=== PATIENT | female | born 1955 | race Caucasian/White ===

== ENCOUNTER 2020-10-20 09:22 | Inpatient (IN) | payer MEDICARE, OTHER ==
[2020-10-20 09:25] LABS: Glucose,Whole Blood 101 mg/dL (75-99)
[2020-10-20] MEDS ORDERED: SODIUM CHLORIDE 0.9% 1,000 ML IV STA (09:28)
--- NOTE | 2020-10-20 09:34 | ED ---
General Adult HPI - General Stated complaint: altered mental status Time Seen by Provider: 10/20/20 09:28 - History of Present Illness Initial comments: Dictation was produced using [employer] dictation software. please excuse any grammatical, word or spelling errors. This patient was cared for during a federal and state declared state of emergency secondary to Covid 19 Chief Complaint: 65-year-old female with past medical history of CVA and recent hospitalization at [facility] presents to the emergency department for altered mental status. History of Present Illness: 65-year-old female. History of present illness was obtained from EMS. EMS reports that they were called for altered mental status. EMS spoke with family called them states that patient was having one-word responses. She is allegedly like this when she was discharged from [facility] a day and a half ago. While en route to the emergency department EMS reports that at approximately 9:20 AM she became significantly less responsive. Patient is unable to provide HPI at this time. They do have discharge paperwork from [facility] dated from October 19. It appears that patient has follow-up appointments with psychiatry, neurology and vascular neurology and also internal medicine. She did is have medication lists for antiepileptic medications. Unable to obtain secondary to mental status PHYSICAL EXAM: General Impression: Spontaneous breathing, unresponsive to painful stimuli, there is a gag reflex, eyes closed and will only open her eyes with noxious stimuli HEENT: Normocephalic atraumatic, extra-ocular movements intact, pupils equal and reactive to light bilaterally, mucous membranes moist. Cardiovascular: Heart regular rate and rhythm Chest: no retractions, no tachypnea Abdomen: abdomen soft, non-tender, no organomegaly Musculoskeletal: Pulses present and equal in all extremities, no peripheral edema Motor: Doesn't respond to painful stimuli Neurological: No focal commands, eyes closed, does not move with nailbed pressure, she does respond to gag Skin: Intact with no visualized rashes ED course: 65-year-old female presents to the emergency department for altered mental status. Clinical presentation concerning for acute cerebrovascular accident. She allegedly had symptoms already a day and a half ago when she was discharged from [facility] according to EMS who received report from family. She did show significantly change in symptoms at approximately 9:20 AM while en route to the emergency department. Code stroke was paged. Computed tomography scan of the brain is unremarkable. CT angio the head and neck shows no acute processes. There is 50% estimated diameter reduction the right proximal internal carotid artery. Otherwise no significant abnormality. Patient is not a candidate for TPA at this time given that there is no clear time of onset. Her NIH is greater than 6. Some clear this is some sort a psychiatric issue. At this point risk outweigh the benefits for TPA at administration. Patient is not a thrombolytic to be candidate. Case discussed with stroke interventionalists who agrees. EKG interpretation: Ventricular rate 76, normal sinus rhythm,. Interval 1:30, QRS 90, QTc 454. No MD prolongation, no QTC prolongation, no ST or T-wave changes noted. No old EKG for comparison, overall this EKG is nonspecific Lavatory evaluation obtained. CBC unremarkable. Coag panel, metabolic panel is unremarkable. Troponin is negative. Patient reevaluated bedside found to be in stable medical condition. Case is discussed with neurologist who is willing to be on consult. Patient be admitted to [facility]. Case discussed Dr. Begum is willing to accept patients care. Patient given aspirin. - Related Data Home Medications Medication Instructions Recorded Confirmed Aspirin EC [Ecotrin Low Dose] 81 mg PO DAILY 10/20/20 10/20/20 Atorvastatin [Lipitor] 10 mg PO HS 10/20/20 10/20/20 Gabapentin 800 mg PO TID 10/20/20 10/20/20 Liothyronine Sodium 25 mcg PO DAILY 10/20/20 10/20/20 carBAMazepine [TEGretol] 200 mg PO Q8H 10/20/20 10/20/20 lamoTRIgine [LaMICtal] 200 mg PO TID 10/20/20 10/20/20 metFORMIN HCL [Glucophage] 500 mg PO BID 10/20/20 10/20/20 traZODone HCL 50 mg PO HS 10/20/20 10/20/20 Allergies Allergy/AdvReac Type Severity Reaction Status Date / Time Penicillins Allergy Unknown Verified 10/20/20 09:56 Review of Systems ROS Statement: Those systems with pertinent positive or pertinent negative responses have been documented in the HPI. ROS Other: All systems not noted in ROS Statement are negative. Course Vital Signs 10/20/20 10/20/20 10/20/20 09:33 10:05 11:08 Temperature 97.6 F 97.6 F Pulse Rate 70 56 L Respiratory 18 18 18 Rate Blood Pressure 130/85 144/75 124/70 O2 Sat by Pulse 95 96 100 Oximetry Medical Decision Making - Lab Data Result diagrams: 10/20/20 10:00 10/20/20 10:00 Lab Results 10/20/20 10/20/20 10/20/20 Range/Units 09:24 10:00 10:00 WBC 4.8 (3.8-10.6) k/uL RBC 4.84 (3.80-5.40) m/uL Hgb 13.9 (11.4-16.0) gm/dL Hct 41.1 (34.0-46.0) % MCV 84.9 (80.0-100.0) fL MCH 28.7 (25.0-35.0) pg MCHC 33.7 (31.0-37.0) g/dL RDW 12.8 (11.5-15.5) % Plt Count 291 (150-450) k/uL MPV 6.5 Neutrophils % 77 % Lymphocytes % 15 % Monocytes % 6 % Eosinophils % 1 % Basophils % 0 % Neutrophils # 3.7 (1.3-7.7) k/uL Lymphocytes # 0.7 L (1.0-4.8) k/uL Monocytes # 0.3 (0-1.0) k/uL Eosinophils # 0.0 (0-0.7) k/uL Basophils # 0.0 (0-0.2) k/uL PT (9.0-12.0) sec INR (<1.2) APTT (22.0-30.0) sec Sodium 134 L (137-145) mmol/L Potassium 4.1 (3.5-5.1) mmol/L Chloride 96 L (98-107) mmol/L Carbon Dioxide 31 H (22-30) mmol/L Anion Gap 7 mmol/L BUN 10 (7-17) mg/dL Creatinine 0.73 (0.52-1.04) mg/dL Est GFR (CKD-EPI)AfAm >90 (>60 ml/min/1.73 sqM) Est GFR (CKD-EPI)NonAf 87 (>60 ml/min/1.73 sqM) Glucose 107 H (74-99) mg/dL POC Glucose (mg/dL) 101 H (75-99) mg/dL POC Glu Developmental Services Worker Kelsey Landeros Calcium 8.7 (8.4-10.2) mg/dL Total Bilirubin 0.3 (0.2-1.3) mg/dL AST 24 (14-36) U/L ALT 13 (4-34) U/L Alkaline Phosphatase 108 (38-126) U/L Troponin I (0.000-0.034) ng/mL Total Protein 6.8 (6.3-8.2) g/dL Albumin 4.0 (3.5-5.0) g/dL 10/20/20 10/20/20 Range/Units 10:00 10:05 WBC (3.8-10.6) k/uL RBC (3.80-5.40) m/uL Hgb (11.4-16.0) gm/dL Hct (34.0-46.0) % MCV (80.0-100.0) fL MCH (25.0-35.0) pg MCHC (31.0-37.0) g/dL RDW (11.5-15.5) % Plt Count (150-450) k/uL MPV Neutrophils % % Lymphocytes % % Monocytes % % Eosinophils % % Basophils % % Neutrophils # (1.3-7.7) k/uL Lymphocytes # (1.0-4.8) k/uL Monocytes # (0-1.0) k/uL Eosinophils # (0-0.7) k/uL Basophils # (0-0.2) k/uL PT 10.3 (9.0-12.0) sec INR 1.0 (<1.2) APTT 25.8 (22.0-30.0) sec Sodium (137-145) mmol/L Potassium (3.5-5.1) mmol/L Chloride (98-107) mmol/L Carbon Dioxide (22-30) mmol/L Anion Gap mmol/L BUN (7-17) mg/dL Creatinine (0.52-1.04) mg/dL Est GFR (CKD-EPI)AfAm (>60 ml/min/1.73 sqM) Est GFR (CKD-EPI)NonAf (>60 ml/min/1.73 sqM) Glucose (74-99) mg/dL POC Glucose (mg/dL) (75-99) mg/dL POC Glu Developmental Services Worker ID Calcium (8.4-10.2) mg/dL Total Bilirubin (0.2-1.3) mg/dL AST (14-36) U/L ALT (4-34) U/L Alkaline Phosphatase (38-126) U/L Troponin I <0.012 (0.000-0.034) ng/mL Total Protein (6.3-8.2) g/dL Albumin (3.5-5.0) g/dL Disposition Clinical Impression: Altered mental status Disposition: ADMITTED IP TO THIS HOSP Condition: Fair Referrals: None,Stated [Primary Care Provider] - 1-2 days Decision Time: 12:02
--- NOTE | 2020-10-20 09:55 | CT ---
EXAMINATION TYPE: CT brain wo con for TPA DATE OF EXAM: 10/20/2020 COMPARISON: None HISTORY: CODE STROKE CT DLP: Not available at time of entry mGycm Unenhanced CT of the brain was performed. The ventricles, basal cisterns and sulci overlying the cerebral convexities demonstrate mild enlargem ent. There is no evidence for intracranial hemorrhage or sulcal effacement. There is decreased attenuation about the periventricular white matter and deep white matter of both c erebral hemispheres, compatible with chronic small vessel ischemia. Differential diagnosis does inclu de demyelination. No mass effects are seen.No midline shift. Osseous calvarium is intact. If symptoms persist consider MRI. IMPRESSION: 1. Age related atrophic and chronic small vessel ischemic change without acute intracranial process s een at this time.
[2020-10-20 10:16] LABS: Basophils % (A) 0 %; Eosinophils % (A) 1 %; HCT 41.1 % (34.0-46.0); HGB 13.9 gm/dL (11.4-16.0); Lymphocytes # (A) 0.7 k/uL (1.0-4.8); Lymphocytes % (A) 15 %; MCH 28.7 pg (25.0-35.0); MCHC 33.7 g/dL (31.0-37.0); MCV 84.9 fL (80.0-100.0); Mean Platelet Volume 6.5; Monocytes # (A) 0.3 k/uL (0-1.0); Monocytes % (A) 6 %; Neutrophils # (A) 3.7 k/uL (1.3-7.7); Neutrophils % (A) 77 %; Platelet Count 291 k/uL (150-450); RBC 4.84 m/uL (3.80-5.40); RDW 12.8 % (11.5-15.5); WBC 4.8 k/uL (3.8-10.6)
--- NOTE | 2020-10-20 10:23 | XR ---
EXAMINATION TYPE: XR chest 2V DATE OF EXAM: 10/20/2020 COMPARISON: NONE TECHNIQUE: PA and lateral views submitted. HISTORY: Mental status change altered mental status FINDINGS: A coarsened interstitium. Subsegmental changes at both lung bases. No sizable pneumothorax. Heart siz e normal. IMPRESSION: 1. Broad for bronchitis, mild interstitial venous congestion or interstitial pneumonitis. 2. Basilar infiltrate bilaterally
[2020-10-20 10:32] LABS: ALT 13 U/L (4-34); AST 24 U/L (14-36); African American GFR (CKD) >90 (>60 ml/min/1.73 sqM); Alkaline Phosphatase 108 U/L (38-126); Anion Gap 7 mmol/L; Blood Urea Nitrogen 10 mg/dL (7-17); Calcium 8.7 mg/dL (8.4-10.2); Carbon Dioxide 31 mmol/L (22-30); Chloride 96 mmol/L (98-107); Glucose 107 mg/dL (74-99); Non-African American GFR(CKD) 87 (>60 ml/min/1.73 sqM); Potassium 4.1 mmol/L (3.5-5.1); Sodium 134 mmol/L (137-145); Total Bilirubin 0.3 mg/dL (0.2-1.3); Total Protein 6.8 g/dL (6.3-8.2)
[2020-10-20 10:41] LABS: Partial Thromboplastin Time 25.8 sec (22.0-30.0); Prothrombin Time 10.3 sec (9.0-12.0)
--- NOTE | 2020-10-20 10:44 | CT ---
EXAMINATION TYPE: CT angio head neck DATE OF EXAM: 10/20/2020 COMPARISON: None HISTORY: CODE STROKE CT DLP: 437 mGycm CONTRAST: Performed without and with IV Contrast, patient injected with 65 ml mL of Isovue 370. Combination Contrast CTA cervical carotids and [place] CTA cervical carotids with 3-D recons truction Contrast CTA of the cervical carotids was performed 3-D reconstruction imaging obtained at a separate workstation. Right carotid system: Mild plaque is seen of the right common carotid artery. There is mild plaque a lso noted at the carotid bulb and proximal ICA. Estimated diameter reduction is 50%. ECA is patent. Right vertebral artery appears unremarkable. Left carotid system: Mild plaque is seen of the left common carotid artery. There is mild plaque als o noted at the carotid bulb and proximal ICA. No significant diameter reduction noted. ECA is paten t. Left vertebral artery appears unremarkable. IMPRESSION: 1. 50% estimated diameter reduction right proximal ICA. No significant diameter reduction identified left carotid system. CTA [place] with 3-D reconstruction Contrast CTA of the [place] was performed 3-D reconstruction imaging obtained at a separate workstation. Vertebrobasilar system as well as intracranial portions of the internal carotid arteries and their ma win tributaries are patent. I do not see evidence for sizable aneurysm or vascular malformation. Pl ease note MRI provides greater sensitivity and specificity. Visualized brain appears grossly unremar kable. IMPRESSION: 1. No significant abnormality.
[2020-10-20] MEDS ORDERED: ASPIRIN 81 MG PO STA (10:58)
[2020-10-20] MEDS: SODIUM CHLORIDE 0.9% 1,000 ML IV SCH (13:21)
--- NOTE | 2020-10-20 13:30 | P.CNNES ---
History of Present Illness Consult date: 10/20/20 Requesting physician: Wilmer Rowell Reason for Consult: Stroke code History of Present Illness: Patient is a 65-year-old female came to the hospital today by ambulance at 9:22 AM for altered mental status. Patient lives at home although was discharged recently from [facility] 2 days ago for similar presentation. per EMS flow sheet,EMS sheet not available in the chart. Her ED physician report, patient was talking minimally in the beginning but then she stopped talking. Per EMS flow sheet, when they arrived at the scene, patient was in see me Fowlers position accompanied by family, in distress and she does not make contact upon greeting. She was alert 4 on the lethargic. Patient was recently discharged from [facility] after treatment for a fall 2 days prior. Upon her discharge the patient's family noted an awkward speech pattern, mobility issues and general poor appearance, with gradual decline in the patient prompting a call for assistance. Patient was noted to have generalized weakness, with no definitive focal examination and a negative stroke assessment. Patient was oriented 0 while enroute to the hospital. Patient's vital signs on the scene was blood pressure 153/93, pulse rate 68, respirations 16, saturation 90% and blood sugar 124. Vital signs on arrival blood pressure 130/85, pulse rate 70, temperature 97.6. Computed tomography scan of head showed age-related atrophic and chronic small vessel ischemic changes without acute intracranial process. Chest x-ray showed coarse and interstitial. Subsegmental changes at both lung bases. No sizable pneumothorax. Heart size normal. CTA of head and neck showed no significant abnormality. No aneurysm or vascular malformation. EKG shows normal sinus rhythm. T wave abnormality. Blood test shows normal CBC, PT/PTT, sodium 134 potassium 4.1, normal renal functions. Hepatic panel normal. Neal virus positive. Review of Systems ROS unobtainable: due to mental status Past Medical History Past Medical History: Unable to Obtain History of Any Multi-Drug Resistant Organisms: Unobtainable Past Surgical History: Unable to Obtain Past Psychological History: Unable to Obtain Smoking Status: Unknown if ever smoked Past Alcohol Use History: Unable to Obtain Past Drug Use History: Unable to Obtain - Past Family History Father Family Medical History: No Reported History Additional Family Medical History / Comment(s): Father is living and pt states no health problems. Mother History Unknown: Yes Additional Family Medical History / Comment(s): Mother is recently . Pt had not seen her mother in over 10 yrs and does not know any of her medical hx. Medications and Allergies Home Medications Medication Instructions Recorded Confirmed Type Aspirin EC [Ecotrin Low Dose] 81 mg PO DAILY 10/20/20 10/20/20 History Atorvastatin [Lipitor] 10 mg PO HS 10/20/20 10/20/20 History Gabapentin 800 mg PO TID 10/20/20 10/20/20 History Liothyronine Sodium 25 mcg PO DAILY 10/20/20 10/20/20 History carBAMazepine [TEGretol] 200 mg PO Q8H 10/20/20 10/20/20 History lamoTRIgine [LaMICtal] 200 mg PO TID 10/20/20 10/20/20 History metFORMIN HCL [Glucophage] 500 mg PO BID 10/20/20 10/20/20 History traZODone HCL 50 mg PO HS 10/20/20 10/20/20 History Allergies Allergy/AdvReac Type Severity Reaction Status Date / Time Penicillins Allergy Unknown Verified 10/20/20 09:56 Physical Examination - Vital Signs Vital Signs: Vital Signs Temp Pulse Resp BP Pulse Ox 10/20/20 13:00 97.8 F 69 18 125/72 100 10/20/20 12:00 97.7 F 68 18 125/63 100 10/20/20 11:15 97.7 F 80 17 125/77 98 10/20/20 11:08 97.6 F 56 L 18 124/70 100 10/20/20 11:00 97.7 F 71 18 124/70 98 10/20/20 10:45 97.7 F 69 18 136/73 100 10/20/20 10:30 97.6 F 70 18 134/71 99 10/20/20 10:15 97.7 F 73 17 133/68 98 10/20/20 10:05 70 18 144/75 96 10/20/20 10:00 97.7 F 68 18 144/75 98 10/20/20 09:45 97.6 F 69 18 145/78 99 10/20/20 09:33 97.6 F 18 130/85 95 10/20/20 09:30 97.6 F 70 18 130/85 100 Intake and Output 10/19/20 10/20/20 10/20/20 22:59 06:59 14:59 Other: Weight 91.626 kg On examination patient is an elderly female, who is not responding to calling her name or to painful stimuli. She does not open her eyes. However she does follow some commands as below. Her pupils are round and reacting to light. Oculocephalics are somewhat inhibited. It appears patient would minimally open her eyelids to peek. Face is symmetric. She is edentulous. Patient would not protrude her tongue, or open her mouth. Hearing could not be tested. Facial sensations could not be tested. On muscle strength testing patient did squeeze hands bilaterally about 4-, would not flex her elbows, although when I manually lifted her arm, she would hold her arms up for some time. Tone is equal bilaterally. Patient would not begin her feet or toes or legs. Patient would not respond to painful stimuli. Reflexes are 1+ at the biceps, trace at brachioradialis, 2 at the knees 0 ankles and plantars are flat bilaterally. No obvious seizure activity noted. No obvious focality. No peripheral edema, abdomen is soft, nontender. Chest is clear. Results - Laboratory Findings CBC and BMP: 10/21/20 04:18 10/21/20 04:18 Abnormal Lab Findings: Abnormal Labs 10/20/20 10/20/20 10/20/20 09:24 10:00 10:00 Lymphocytes # 0.7 L Sodium 134 L Chloride 96 L Carbon Dioxide 31 H Glucose 107 H POC Glucose (mg/dL) 101 H Coronavirus (PCR) 10/20/20 12:00 Lymphocytes # Sodium Chloride Carbon Dioxide Glucose POC Glucose (mg/dL) Coronavirus (PCR) Detected A Assessment and Plan Assessment: * Altered mental status, possible metabolic encephalopathy, rule out functional disorder. * Covid 19 positive status. Plan: * Patient had a normal computed tomography scan of head, CTA of head and neck. * Her limited examination is nonfocal. * We will check EEG to evaluate for any interictal epileptiform activity. * We will check Tegretol, Lamictal and Neurontin levels, also B12, folate, TSH, RPR, B6, B1. * We will discuss with the family to get collateral history. * Neurology will follow.
[2020-10-20] MEDS ORDERED: NALOXONE 0.4 MG/ML 1 ML VIAL IV PRN (14:14)
[2020-10-20] MEDS ORDERED: ACETAMINOPHEN TAB 325 MG TAB PO PRN (14:14)
[2020-10-20] MEDS ORDERED: MELATONIN 3 MG TABLET PO PRN (14:14)
[2020-10-20] MEDS ORDERED: ALBUTEROL HFA INHALER INHALATION PRN (14:45)
--- NOTE | 2020-10-20 15:25 | P.HPIM ---
<Jai Lai - Last Filed: 10/20/20 14:28> History of Present Illness H&P Date: 10/20/20 Chief Complaint: Alteratin in Mental Status History of presenting illness: Patient is a 65-year-old female with a past medical history including epilepsy and mental delay, CVA/TIA, hyperlipidemia, and diabetes mellitus type 2. Patient presented to [facility] emergency department via EMS for reports of alteration in mental status. Patient recently discharged from [facility] on 10/19/20 where she presented initially for alteration in mental status and had full workup completed prior to discharge on October 19 and instructed to follow-up with psychiatry, neurology, internal medicine, and vascular neurology. Patient was seen and fully evaluated in the emergency department. CT brain without contrast was reported to reveal age-related atrophic and chronic small vessel ischemic changes without any acute intracranial process seen at this time . Chest x-ray reported to be brought for bronchitis with mild interstitial venous congestion and interstitial pneumonitis and basilar infiltrates bilaterally. CTA head and showing 50% estimated diameter reduction to patient's right proximal internal carotid artery with no significant diameter reduction identified in the left carotid system. Otherwise negative for acute intracranial process negative for significant abnormality. EKG normal sinus rhythm at 76 bpm with T-wave inversion in inferior leads II, III, and aVF with no ST abnormalities. No previous EKG available for comparison. Labs: Troponin normal findings < 0.012. CBC unremarkable. Coags unremarkable. BMP revealing mild hyponatremia with sodium of 134 and hypochloremia with chloride 96, otherwise no acute abnormalities. Liver profile unremarkable. Covid 19 virus PCR was POSITIVE. Patient admitted under our services with consult to neurology, psychiatry, and pulmonology. Upon evaluation at bedside, patient was found to have expressive aphasia. She was able to get out limited words and spoke and one syllable responses with pauses between each syllable to pronounce words. She appeared generally weak but was able to lift both arms without difficulties, squeeze providers hands with what appeared to be equal strength, and was able to lift both legs off of the mattress but only high enough for heel to just come off the bed and was not able to hold on for more than 3 seconds. Pupils were equal, round, and reactive to light. Patient unable to follow light with her eyes or finger with her eyes, she was following limited commands. Unable to complete full ROS secondary to patient's alteration in mental status. I called and spoke with her family member, Richard Rey (patient's brother and next of kin). Richard reported that his sister whom he calls "Carisa" typically is alert and oriented to person, place, time, and situation. She lives independently at an assisted living facility called [facility] and ambulate independently without use of any devices. He reports a few days back she was complaining of significant weakness stating she had no energy and was unable to lift her legs, she reportedly had a fall and managed to crawl towards a wall and began banging on it until she received some assistance. He states she was taken to [facility] and was admitted and underwent evaluation in which he reports they diagnosed her with a TIA and discharged her home on 10/19/20. He reports that when he picked her up from the hospital she was still very weak and unable to ambulate so instead of taking her back to the assisted living facility, he had to bring her to her cousin's house so they could take care of her. He states since the discharge from the hospital, she has continued to be very fatigued and weak, had no appetite and did not eat anything, she complained of nausea, and couldn't even talk, which he felt was a total change from his sister's normal behavior so he knew he had to send her back to the hospital for another evaluation because he felt something was very wrong. Review of systems: Family reports patient positive for weakness, extreme fatigue, loss of appetite, and nausea. Unable to complete full ROS secondary to patient's current alt eration in mental status. Physical exam: General: non toxic, appears at stated age, showing no signs of acute distress at this time, vital signs stable Derm: warm, dry, bruise to left hip Head: atraumatic, normocephalic, symmetric Eyes: pupils equal, round, and reactive to light. Unable to assess EOMs secondary to patient's alteration in mental status and inability to follow all commands at this time. Mouth: dry and pasty Cardiovascular: S1-S2 normal with regular rate and rhythm. No murmur, gallops, or rubs noted. Posterior tibial pulses intact bilaterally. Cap refill less than 2 seconds. Lungs: Respirations even, regular, and unlabored on 2 L O2 via nasal cannula with SpO2 of 97% . Lungs diminished bilaterally, possibly secondary to patient not taking deep breaths as she was only following limited commands. Abdominal: Obese abdomen, soft, nontender to palpation, no guarding, no appreciable organomegaly Ext: No gross muscle atrophy, generalized lower extremity edema nonpitting, no contractures Psych/Neuro: Patient awake, eyes open, positive for expressive aphasia, following only limited commands. Patient not withdrawing to painful stimuli, but will move extremities independently and follow limited commands. Plan of care: Alteration in mental status -Possibly secondary to neuropsych condition vs acute infection with COVID 19 virus infection. -CT brain without contrast was reported to reveal age-related atrophic and chronic small vessel ischemic changes without any acute intracranial process seen at this time. -CTA head and showing 50% estimated diameter reduction to patient's right proximal internal carotid artery with no significant diameter reduction identified in the left carotid system, otherwise negative for acute intracranial process negative for significant abnormality. -EKG normal sinus rhythm at 76 bpm with T-wave inversion in inferior leads II, III, and aVF with no ST abnormalities. No previous EKG available for comparison. Labs: -Labs: Troponin normal findings < 0.012. CBC unremarkable. Coags unremarkable. BMP revealing mild hyponatremia with sodium of 134 and hypochloremia with chloride 96, otherwise no acute abnormalities. Covid 19 PCR positive. -Neuro checks every 4 hours. -Consult neurology. -Consult psychiatry. Covid 19 virus pneumonitis -Covid 19 PCR positive on 10/20/20 -Chest x-ray reported to be brought for bronchitis with mild interstitial venou s congestion and interstitial pneumonitis and basilar infiltrates bilaterally. -Oxygenation as needed to maintain SpO2 equal to or greater than 92%. -Decadron 6 mg daily -Vitamin C, vitamin D, zinc, and melatonin. -Consult pulmonology -Bronchodilator protocol with MDIs as needed for wheezing and/or shortness of breath. -Contact plus droplet precautions. -Orders place for CRP, d-dimer, ferritin, and LDH. Seizure disorder -Continue daily medication management with Tegretol and Lamictal. -Seizure precautions, fall precautions, and aspiration precautions in place. Type II [id number] diabetes mellitus -Hold metformin in place patient on glycemic protocol with NovoLog sliding scale. -Heart healthy carb consistent diet. Hyperlipidemia -Continue daily medication management with atorvastatin 10 mg nightly. The patient is admitted with an anticipated greater than 2 midnight stay for evaluation of alteration in mental status and Covid 19 virus infection with pneumonitis. Surrogate decision-maker: In the event patient is unable to make decisions, shonda dalton's brother Richard Rey may be reached at [phone] CODE STATUS: Full code DVT prophylaxis: Lovenox Discussed with: Patient, RN, and patient's brother Richard Anticipated discharge date: Clinical course to determine Anticipated discharge place: Home A total of 45 minutes was spent on the care of this complex patient more than 50% of the time was spent in counseling and care coordination. Past Medical History Past Medical History: Unable to Obtain History of Any Multi-Drug Resistant Organisms: Unobtainable Past Surgical History: Unable to Obtain Past Psychological History: Unable to Obtain Smoking Status: Unknown if ever smoked Past Alcohol Use History: Unable to Obtain Past Drug Use History: Unable to Obtain Medications and Allergies Home Medications Medication Instructions Recorded Confirmed Type Aspirin EC [Ecotrin Low Dose] 81 mg PO DAILY 10/20/20 10/20/20 History Atorvastatin [Lipitor] 10 mg PO HS 10/20/20 10/20/20 History Gabapentin 800 mg PO TID 10/20/20 10/20/20 History Liothyronine Sodium 25 mcg PO DAILY 10/20/20 10/20/20 History carBAMazepine [TEGretol] 200 mg PO Q8H 10/20/20 10/20/20 History lamoTRIgine [LaMICtal] 200 mg PO TID 10/20/20 10/20/20 History metFORMIN HCL [Glucophage] 500 mg PO BID 10/20/20 10/20/20 History traZODone HCL 50 mg PO HS 10/20/20 10/20/20 History Allergies Allergy/AdvReac Type Severity Reaction Status Date / Time Penicillins Allergy Unknown Verified 10/20/20 09:56 Physical Exam Vitals: Vital Signs Temp Pulse Resp BP Pulse Ox 10/20/20 11:08 97.6 F 56 L 18 124/70 100 10/20/20 10:05 70 18 144/75 96 10/20/20 09:33 97.6 F 18 130/85 95 Intake and Output 10/19/20 10/20/20 10/20/20 22:59 06:59 14:59 Other: Weight 91.626 kg Results CBC & Chem 7: 10/20/20 10:00 10/20/20 10:00 Labs: Abnormal Lab Results - Last 24 Hours (Table) 10/20/20 10/20/20 10/20/20 Range/Units 09:24 10:00 10:00 Lymphocytes # 0.7 L (1.0-4.8) k/uL Sodium 134 L (137-145) mmol/L Chloride 96 L (98-107) mmol/L Carbon Dioxide 31 H (22-30) mmol/L Glucose 107 H (74-99) mg/dL POC Glucose (mg/dL) 101 H (75-99) mg/dL <Nicky Ramesh A - Last Filed: 10/20/20 17:07> Physical Exam Osteopathic Statement: *. No significant issues noted on an osteopathic str uctural exam other than those noted in the History and Physical/Consult. Vitals: Vital Signs Temp Pulse Resp BP Pulse Ox 10/20/20 16:33 98.2 F 70 18 151/96 98 10/20/20 13:00 97.8 F 69 18 125/72 100 10/20/20 12:00 97.7 F 68 18 125/63 100 10/20/20 11:15 97.7 F 80 17 125/77 98 10/20/20 11:08 97.6 F 56 L 18 124/70 100 10/20/20 11:00 97.7 F 71 18 124/70 98 10/20/20 10:45 97.7 F 69 18 136/73 100 10/20/20 10:30 97.6 F 70 18 134/71 99 10/20/20 10:15 97.7 F 73 17 133/68 98 10/20/20 10:05 70 18 144/75 96 10/20/20 10:00 97.7 F 68 18 144/75 98 10/20/20 09:45 97.6 F 69 18 145/78 99 10/20/20 09:33 97.6 F 18 130/85 95 10/20/20 09:30 97.6 F 70 18 130/85 100 Intake and Output 10/20/20 10/20/20 10/20/20 06:59 14:59 22:59 Other: Weight 91.626 kg Results CBC & Chem 7: 10/20/20 10:00 10/20/20 10:00 Labs: Abnormal Lab Results - Last 24 Hours (Table) 10/20/20 10/20/20 10/20/20 Range/Units 09:24 10:00 10:00 Lymphocytes # 0.7 L (1.0-4.8) k/uL Sodium 134 L (137-145) mmol/L Chloride 96 L (98-107) mmol/L Carbon Dioxide 31 H (22-30) mmol/L Glucose 107 H (74-99) mg/dL POC Glucose (mg/dL) 101 H (75-99) mg/dL C-Reactive Protein (<10.0) mg/L Coronavirus (PCR) (Not Detectd) 10/20/20 10/20/20 Range/Units 10:00 12:00 Lymphocytes # (1.0-4.8) k/uL Sodium (137-145) mmol/L Chloride (98-107) mmol/L Carbon Dioxide (22-30) mmol/L Glucose (74-99) mg/dL POC Glucose (mg/dL) (75-99) mg/dL C-Reactive Protein 13.0 H (<10.0) mg/L Coronavirus (PCR) Detected A (Not Detectd) Assessment and Plan Assessment: Patient seen and examined independently. Patient was also seen by Jai Lai NP and case was discussed. I am in agreement with subjective, physical exam, assessment and plan as written above and amended below. Initially patient had fluid speech without dysarthria and was complaining of being weak. Once I told her that she had COVID she became tearful and immediately had some dysarthria and slowed speaking. She then reported that she felt guilty for giving her family COVID, she became inappropriately upset and tearful. She made passive statement as to hoping that she would from the COVID rather than live with the guilt that she had exposed her family. She continued to state that this was not okay and that she felt exceedingly guilty. General: [non toxic], [no distress], [appears at stated age] Derm: [warm], [dry] Head: [atraumatic], [normocephalic], [symmetric] Eyes: [EOMI], [no lid lag], [anicteric sclera] Mouth: [no lip lesion], [mucus membranes moist] Cardiovascular: [S1S2 reg], [no murmur], [positive posterior tibial pulse bilateral], Lungs: [Decreased breath sounds bilateral], [no rhonchi, no rales] , [no accessory muscle use] Abdominal: [soft], [ nontender to palpation], [no guarding], [no appreciable organomegaly] Ext: [no gross muscle atrophy], [no edema], [no contractures] Neuro: Initially she was moving all 4 extremities independently with fluid speech. When she became upset she started having difficulty raising her arms and refused to move her legs for many Psych: [Alert], [oriented], tearful, upset, crying, inconsolable Patient does have Covid 19 infection -Does not appear to be acutely hypoxic as she is satting 99-100% on 2 L nasal cannula. At this point in time would avoid steroids if she is not hypoxic and this could exacerbate psychiatric symptoms. -Patient has thyroid supplementation will check TSH.
[2020-10-20] MEDS: CHOLECALCIFEROL 25 MCG (1000 IU) TABLET PO SCH (16:36)
[2020-10-20] MEDS: carBAMazepine 200 MG TAB PO SCH (16:36)
[2020-10-20] MEDS: ENOXAPARIN 40 MG/0.4 ML SYRINGE SQ SCH (16:36)
[2020-10-20] MEDS: lamoTRIgine 100 MG TAB PO SCH (16:36)
[2020-10-20] MEDS: ZINC SULFATE 220 MG CAP PO SCH (16:36)
[2020-10-20] MEDS: ASCORBIC ACID 500 MG TAB PO SCH (16:36)
[2020-10-20 17:14] LABS: Glucose,Whole Blood 98 mg/dL (75-99)
[2020-10-20] MEDS: INSULIN ASPART (NovoLOG) 100 UNIT/ML VIAL SQ SCH (17:14)
--- NOTE | 2020-10-20 17:19 | EEG ---
ELECTROENCEPHALOGRAM REPORT DATE OF SERVICE: 10/20/2020 PREAMBLE: This is a 65-year-old female with altered mental status. EEG FINDINGS: This is a 21-channel routine EEG recording in a patient utilizing 10/20 international system with referential and bipolar montages. Background consists of well-developed, moderately well-regulated, mixed frequencies of 8-9 hertz alpha with some 6-7 hertz theta activity. Background does not seem to be clearly reactive to eye opening or closing. Photic driving response was not seen. No focal or generalized epileptiform activity was seen. EKG channel showed no obvious arrhythmia. Different stages of sleep were not seen. IMPRESSION: This is a mildly abnormal EEG due to mildly disorganized background with minimal slowing. This is suggestive of mild generalized cerebral dysfunction, related to encephalopathy or medication effect. No epileptiform activity was seen. MMODL / CHERELLEN: [id number] /
[2020-10-21] MEDS: ATORVASTATIN 10 MG TAB PO SCH ×2 (03:17→20:53)
[2020-10-21] MEDS: lamoTRIgine 100 MG TAB PO SCH ×4 (03:17→20:53)
[2020-10-21] MEDS: SODIUM CHLORIDE 0.9% 1,000 ML IV SCH ×3 (03:17→20:53)
[2020-10-21] MEDS: carBAMazepine 200 MG TAB PO SCH ×4 (03:17→22:18)
[2020-10-21 04:44] LABS: Basophils % (A) 0 %; Eosinophils # (A) 0.1 k/uL (0-0.7); Eosinophils % (A) 1 %; HCT 40.6 % (34.0-46.0); HGB 13.8 gm/dL (11.4-16.0); Lymphocytes % (A) 23 %; MCH 28.8 pg (25.0-35.0); MCV 84.7 fL (80.0-100.0); Mean Platelet Volume 6.7; Monocytes # (A) 0.3 k/uL (0-1.0); Monocytes % (A) 7 %; Neutrophils # (A) 2.9 k/uL (1.3-7.7); Neutrophils % (A) 67 %; Platelet Count 297 k/uL (150-450); RBC 4.79 m/uL (3.80-5.40); RDW 12.8 % (11.5-15.5); WBC 4.4 k/uL (3.8-10.6)
[2020-10-21 05:19] LABS: African American GFR (CKD) >90 (>60 ml/min/1.73 sqM); Anion Gap 8 mmol/L; Blood Urea Nitrogen 10 mg/dL (7-17); Carbon Dioxide 27 mmol/L (22-30); Chloride 101 mmol/L (98-107); Cholesterol 169 mg/dL (<200); Glucose 82 mg/dL (74-99); HDL Cholesterol 75 mg/dL (40-60); LDL Cholesterol,Calculated 74 mg/dL (0-99); Non-African American GFR(CKD) >90 (>60 ml/min/1.73 sqM); Potassium 3.9 mmol/L (3.5-5.1); Sodium 136 mmol/L (137-145); Triglycerides 100 mg/dL (<150)
[2020-10-21 06:40] LABS: Ferritin 63.6 ng/mL (10.0-291.0)
[2020-10-21] MEDS ORDERED: ASPIRIN 325 MG TAB PO SCH (09:00)
[2020-10-21] MEDS ORDERED: dexAMETHasone 2 MG TAB PO SCH (09:00)
[2020-10-21] MEDS: CHOLECALCIFEROL 25 MCG (1000 IU) TABLET PO SCH ×2 (10:08→10:10)
[2020-10-21] MEDS: ZINC SULFATE 220 MG CAP PO SCH (10:08)
[2020-10-21] MEDS: ASCORBIC ACID 500 MG TAB PO SCH (10:08)
[2020-10-21] MEDS: ENOXAPARIN 40 MG/0.4 ML SYRINGE SQ SCH (10:08)
[2020-10-21] MEDS: ASPIRIN 81 MG PO SCH (10:09)
[2020-10-21] MEDS: INSULIN ASPART (NovoLOG) 100 UNIT/ML VIAL SQ SCH ×3 (10:15→17:50)
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
[2020-10-21 12:12] LABS: Glucose,Whole Blood 105 mg/dL (75-99)
--- NOTE | 2020-10-21 12:43 | P.PN ---
<Jai Lai - Last Filed: 10/21/20 12:05> Subjective Progress Note Date: 10/21/20 History of presenting illness: Patient is a 65-year-old female with a past medical history including epilepsy and mental delay, CVA/TIA, hyperlipidemia, and diabetes mellitus type 2. Patient presented to [facility] emergency department via EMS for reports of alteration in mental status. Patient recently discharged from [facility] on 10/19/20 where she presented initially for alteration in mental status and had full workup completed prior to discharge on October 19 and instructed to follow-up with psychiatry, neurology, internal medicine, and vascular neurology. Patient was seen and fully evaluated in the emergency department. CT brain without contrast was reported to reveal age-related atrophic and chronic small vessel ischemic changes without any acute intracranial process seen at this time. Chest x-ray reported to be brought for bronchitis with mild interstitial venous congestion and interstitial pneumonitis and basilar infiltrates bilaterally. CTA head and showing 50% estimated diameter reduction to patient's right proximal internal carotid artery with no significant diameter reduction identified in the left carotid system. Otherwise negative for acute intracranial process negative for significant abnormality. EKG normal sinus rhythm at 76 bpm with T-wave inversion in inferior leads II, III, and aVF with no ST abnormalities. No previous EKG available for comparison. Labs: Troponin normal findings < 0.012. CBC unremarkable. Coags unremarkable. BMP revealing mild hyponatremia with sodium of 134 and hypochloremia with chloride 96, otherwise no acute abnormalities. Liver profile unremarkable. Covid 19 virus PCR was POSITIVE. Patient admitted under our services for acute alteration in mental status and Covid 19 pneumonitis with consult to neurology, psychiatry, and pulmonology. Physical exam: 10/21/20: Patient seen and evaluated at the bedside this morning. She was awake, alert, and oriented 4. Speech was clear. All previously noted neuro/psychiatric symptoms have spontaneously resolved. Pt is moving all extremities with moderate and equal strength. Sensation intact. Patient denied having any complaints at this time including recent fever, chills, diaphoresis, headache, lightheadedness, dizziness, changes in vision or hearing, chest pain or palpitations, abdominal pain, nausea, vomiting, changes in her difficulties with urinary or bowel function, or currently experiencing any numbness/weakness/tingling in extremities. Patient reports that she fully remembers yesterday and states that she was very concerned because she could not feel her legs and could not move her left leg and had a very difficult time trying to talk. Patient's main concern this morning was that she was very hungry. A diet order was placed. Vital signs reviewed and stable. CBC and BMP unremarkable. TSH was elevated at 9.430, Liothyronine sodium increased to 75 g daily. General: non toxic, appears at stated age, showing no signs of acute distress at this time, vital signs stable Derm: warm, dry, bruise to left hip Head: atraumatic, normocephalic, symmetric Eyes: Pupils equal, round, and reactive to light. EOMs intact. No scleral icterus noted. Mouth: No lip or tongue lesions noted, mucous membranes moist. Upper and lower dentures. Cardiovascular: S1-S2 normal with regular rate and rhythm. No murmur, gallops, or rubs noted. Posterior tibial pulses intact bilaterally. Cap refill less than 2 seconds. Lungs: Respirations even, regular, and unlabored on room air with SpO2 97%. Lungs diminished bilaterally, possibly secondary to patient not taking deep breaths as she was only following limited commands. Abdominal: Obese abdomen, soft, nontender to palpation, no guarding, no appreciable organomegaly Ext: No gross muscle atrophy, generalized lower extremity edema nonpitting, no contractures. Full range of motion intact. Strength moderate and equal in bilateral upper and lower extremities. Neuro: Patient awake, alert, and oriented this morning. Speech clear. GCS 15. Cranial nerves II through XII intact. No noted neuro deficits. Psych: Patient currently alert and oriented, denies visual, auditory, or tactile hallucinations. Denies suicidal or homicidal ideations. Plan of care: Covid 19 virus pneumonitis -Covid 19 PCR positive on 10/20/20 -Chest x-ray reported to be brought for bronchitis with mild interstitial venous congestion and interstitial pneumonitis and basilar infiltrates bilaterally. -Oxygenation as needed to maintain SpO2 equal to or greater than 92%. -May consider adding steroid such as Decadron if patient becomes symptomatic or hypoxic, she is currently on room air with SpO2 97%. -Vitamin C, vitamin D, zinc, and melatonin. -Pulmonology following. -Bronchodilator protocol with MDIs as needed for wheezing and/or shortness of breath. -Contact plus droplet precautions. Alteration in mental status, resolved -Previous episode of acute alteration in mental status is highly suspected to be secondary to underlying psychiatric disorder. -CT brain without contrast was reported to reveal age-related atrophic and chronic small vessel ischemic changes without any acute intracranial process seen at this time. -CTA head and showing 50% estimated diameter reduction to patient's right proximal internal carotid artery with no significant diameter reduction identified in the left carotid system, otherwise negative for acute intracranial process negative for significant abnormality. -EKG normal sinus rhythm at 76 bpm with T-wave inversion in inferior leads II, III, and aVF with no ST abnormalities. No previous EKG available for comparison. -Neuro checks every 4 hours. -Neurology following, appreciate further recommendations. -Consult psychiatry, appreciate further recommendations. Hypothyroidism -TSH 9.430 -Daily medication management consists of Liothyronine sodium 25 mcgs daily. Dose increased to 75 g daily at this time. -Patient to follow up outpatient with PCP/endocrinology for repeat labs and continued long-term monitoring and management of thyroid function. Seizure disorder -Continue daily medication management with Tegretol and Lamictal. -Seizure precautions, fall precautions, and aspiration precautions in place. -Carbamazepine level 6.1. Type II [id number] diabetes mellitus -Hold metformin and place patient on glycemic protocol with NovoLog sliding scale. -Heart healthy carb consistent diet. Hyperlipidemia -Continue daily medication management with atorvastatin 10 mg nightly. -Heart healthy carb consistent diet CODE STATUS: Full code DVT prophylaxis: Lovenox Discussed with: Patient and RN Anticipated discharge date: Clinical course to determine Anticipated discharge place: SNF vs inpatient mental health facility A total of 45 minutes was spent on the care of this complex patient more than 50% of the time was spent in counseling and care coordination. Objective - Vital Signs Vital signs: Vital Signs Temp 98.1 F 10/21/20 08:00 Pulse 72 10/21/20 08:00 Resp 16 10/21/20 08:00 BP 116/71 10/21/20 08:00 Pulse Ox 94 L 10/21/20 08:00 Intake & Output 10/20/20 10/21/20 10/21/20 18:59 06:59 18:59 Weight 91.626 kg 91.626 kg - Labs CBC & Chem 7: 10/21/20 04:18 10/21/20 04:18 Labs: Abnormal Lab Results - Last 24 Hours (Table) 10/20/20 10/20/20 10/20/20 Range/Units 10:00 10:00 10:00 Lymphocytes # 0.7 L (1.0-4.8) k/uL Sodium 134 L (137-145) mmol/L Chloride 96 L (98-107) mmol/L Carbon Dioxide 31 H (22-30) mmol/L Glucose 107 H (74-99) mg/dL C-Reactive Protein 13.0 H (<10.0) mg/L HDL Cholesterol (40-60) mg/dL TSH (0.465-4.680) mIU/L Coronavirus (PCR) (Not Detectd) 10/20/20 10/21/20 Range/Units 12:00 04:18 Lymphocytes # (1.0-4.8) k/uL Sodium 136 L (137-145) mmol/L Chloride (98-107) mmol/L Carbon Dioxide (22-30) mmol/L Glucose (74-99) mg/dL C-Reactive Protein (<10.0) mg/L HDL Cholesterol 75 H (40-60) mg/dL TSH 9.430 H (0.465-4.680) mIU/L Coronavirus (PCR) Detected A (Not Detectd) <Nicky Ramesh A - Last Filed: 10/21/20 21:33> Objective - Vital Signs Vital signs: Vital Signs Temp 98.4 F 10/21/20 20:00 Pulse 71 10/21/20 20:59 Resp 16 10/21/20 20:59 BP 144/75 10/21/20 20:00 Pulse Ox 97 10/21/20 20:00 Intake & Output 10/21/20 10/21/20 10/22/20 06:59 18:59 06:59 Intake Total 200 Output Total 1400 900 Balance -1200 -900 Weight 91.626 kg Intake: Oral 200 Output: Urine 1400 900 Other: Voiding Method Toilet Indwelling Catheter - Labs CBC & Chem 7: 10/21/20 04:18 10/21/20 04:18 Labs: Abnormal Lab Results - Last 24 Hours (Table) 10/21/20 10/21/20 Range/Units 04:18 12:11 Sodium 136 L (137-145) mmol/L POC Glucose (mg/dL) 105 H (75-99) mg/dL HDL Cholesterol 75 H (40-60) mg/dL TSH 9.430 H (0.465-4.680) mIU/L Assessment and Plan Assessment: I discussed the care with Jai Lai NP and reviewed the findings and plan as documented in the note above. I did not physically speak with or examine the patient on this date.
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
[2020-10-21] MEDS: LIOTHYRONINE SODIUM 5 MCG TAB PO SCH (16:03)
[2020-10-21 17:20] LABS: Glucose,Whole Blood 82 mg/dL (75-99)
[2020-10-21 20:02] LABS: Glucose,Whole Blood 95 mg/dL (75-99)
--- NOTE | 2020-10-21 23:13 | P.PN ---
Subjective Progress Note Date: 10/21/20 Patient was seen for a follow-up. Patient is fully alert and awake oriented. Speech and language functions are normal. Mentation is completely normal today. Patient states she is feeling much better. Offers no complaints. Patient able to provide more detailed history. She states that she has history of seizure disorder since she was 4 years old. She has history of petit mal and grand mal seizures. The last seizure was 2 months ago. She only gets seizure when she is upset, depressed or working too hard outside in the sun. Patient states that she has been very stable. On 10/16/2020, she was sitting, stood up and fell to the floor. Her left leg was completely froze. She tried crawling t o the bed and was able to get help from the apartment office. [place] [facility] [place] for 2 [place]. 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 Patient believes that she underwent EEG and an MRI in the hospital. Patient states that they did not check for Covid. When she went home, she couldn't walk, needed brother helped, as she couldn't walk by herself. She was not eating, drinking. Whenever she was eating, felt like will throw up. As she became very weak, therefore was brought to the hospital. Patient states that her seizures at present are managed by her primary physician. She is not seeing any neurologist. Objective - Vital Signs Vital signs: Vital Signs Temp 98.4 F 10/21/20 15:00 Pulse 65 10/21/20 15:00 Resp 18 10/21/20 15:00 BP 128/74 10/21/20 15:00 Pulse Ox 95 10/21/20 15:00 Intake & Output 10/20/20 10/21/20 10/21/20 18:59 06:59 18:59 Intake Total 200 Output Total 1000 Balance -800 Weight 91.626 kg 91.626 kg Intake: Oral 200 Output: Urine 1000 Other: Voiding Method Toilet - Exam On examination patient is an elderly female, very pleasant, in no acute distress. She is alert and awake. Patient knows that she is in [facility], and it is October and the year is 2020 and name of the current president. On cranial exertion pupils are round and reacting, visual mccray are full, extraocular muscles are intact, face is symmetric and tongue protrudes at midline. Muscle strength appears normal bilaterally. - Labs CBC & Chem 7: 10/21/20 04:18 10/21/20 04:18 Labs: Abnormal Lab Results - Last 24 Hours (Table) 10/21/20 10/21/20 Range/Units 04:18 12:11 Sodium 136 L (137-145) mmol/L POC Glucose (mg/dL) 105 H (75-99) mg/dL HDL Cholesterol 75 H (40-60) mg/dL TSH 9.430 H (0.465-4.680) mIU/L Assessment and Plan Assessment: * Altered mental status, possible metabolic encephalopathy * Seizure disorder * Covid 19 positive status. Plan: * Patient had a normal computed tomography scan of head, CTA of head and neck. * Patient's mentation is back to normal. Current neurological examination is nonfocal. * EEG was mildly abnormal due to slightly disorganized background with minimal slowing. This is suggestive of mild generalized cerebral dysfunction, related to encephalopathy or medication effect. No epileptiform activity was seen. * Tegretol 6.1, therapeutic. Await Lamictal and Neurontin levels. TSH is elevated 9.43. IM to address hypothyroidism. Await B12, folate, RPR, B6, B1. * Continue same dose of Lamictal 200 mg 3 times a day and Tegretol 200 mg every 8 hours. * May resume Neurontin at a lower dose 300 mg 3 times a day. (Patient was on Neurontin 800 mg 3 times a day). * We will obtain [place] [facility]
[2020-10-22] MEDS: SODIUM CHLORIDE 0.9% 1,000 ML IV SCH ×3 (02:29→20:28)
[2020-10-22] MEDS ORDERED: LIOTHYRONINE SODIUM 5 MCG TAB PO SCH (06:30)
[2020-10-22] MEDS: LIOTHYRONINE SODIUM 5 MCG TAB PO SCH (07:02)
[2020-10-22] MEDS: carBAMazepine 200 MG TAB PO SCH ×3 (07:02→20:27)
[2020-10-22 07:27] LABS: Glucose,Whole Blood 80 mg/dL (75-99)
[2020-10-22 09:04] LABS: Folate, Serum 12.7 ng/mL
[2020-10-22] MEDS: INSULIN ASPART (NovoLOG) 100 UNIT/ML VIAL SQ SCH ×3 (09:09→17:34)
[2020-10-22] MEDS: GABAPENTIN 300 MG CAP PO SCH ×3 (09:22→20:27)
[2020-10-22] MEDS: ENOXAPARIN 40 MG/0.4 ML SYRINGE SQ SCH (09:22)
[2020-10-22] MEDS: ASPIRIN 81 MG PO SCH (09:22)
[2020-10-22] MEDS: lamoTRIgine 100 MG TAB PO SCH ×3 (09:22→20:27)
[2020-10-22] MEDS: ZINC SULFATE 220 MG CAP PO SCH (09:22)
[2020-10-22] MEDS: ASCORBIC ACID 500 MG TAB PO SCH (09:22)
--- NOTE | 2020-10-22 09:59 | P.PN ---
Subjective Progress Note Date: 10/22/20 Principal diagnosis: Acute, with 19 infection and metabolic encephalopathy, possible TIA. This is a 65-year-old white female, known history of epilepsy, previous CVA/TIA. Type 2 diabetes. Patient was recently at [facility] in [place] with multiple neurological symptoms including change in mental status, and weakness in lower extremities from the waist down. Patient was actually discharged on 10/19/2020, and she was advised to follow-up with psychiatry neurology and internal medicine as well as vascular radiology. Apparently she had extensive neurological workup while at [facility], and all the workup came back nondiagnostic. Patient was brought in this time to [facility] with complaints including couldn't talk./Expressive aphasia, and she was weak from the waist down, couldn't move her lower extremities. She was seen by neurology on consultation, and she had extensive workup again which basically came back all nondiagnostic. According to the patient all the workup that was done at [facility] was repeated again in our institution. While in the ER, patient had a chest x-ray which questioned interstitial infiltrates, and she tested positive for covid 19. Patient did not require any oxygen and I asked her multiple times about if she has any pulmonary symptoms she denied any symptoms whatsoever. She denied cough denied wheezing denies shortness of breath today chest pain denied any dyspnea on exertion. Patient basically had mostly neurological symptoms. And according to her her expressive aphasia reso lved this morning her weakness in the legs also resolved this morning. Patient lives in an assisted living facility. And she normally ambulates independently without any use of any device. CBC in the ER was normal basic metabolic profile was normal, thyroid profile was abnormal with elevated TSH and relatively low T4. Lower limits of normal, indicative of mild hypothyroidism. Patient was reevaluated today on 10/22/2020, patient seems to be doing well, has no active pulmonary symptoms whatsoever. Her neurological symptoms have also resolved, and there was no clear-cut explanation to her neurological symptoms, reviewed the report from the neurologist, again no clear-cut explanation for her symptoms. Seen by psychiatry, and did not feel the patient had conversion disorder. At any rate from our perspective and pulmonary-valera the patient is doing well, she has no active symptoms to suggest active infection at this point. Patient remains on room air, and from our perspective consider discharge planning if cleared by neurology. Labs were reviewed today, and they seem to be relatively unremarkable. Even her inflammatory markers were not impressive on presentation LDH was 360 and C-reactive protein was 13 Objective - Vital Signs Vital signs: Vital Signs Temp 98.3 F 10/22/20 07:10 Pulse 73 10/22/20 07:10 Resp 18 10/22/20 07:10 BP 120/70 10/22/20 07:10 Pulse Ox 97 10/22/20 07:10 Intake & Output 10/21/20 10/22/20 10/22/20 18:59 06:59 18:59 Intake Total 200 240 Output Total 1400 3225 Balance -1200 -3225 240 Weight 91.626 kg Intake: Oral 200 240 Output: Urine 1400 3225 Other: Voiding Method Toilet Indwelling Catheter - Exam Physical Exam: Revealed a 65-year-old female in no distress on room air. Head: Atraumatic, normocephalic. HEENT:[Neck is supple.] [No neck masses.] [No thyromegaly.] [No JVD.] Chest: [Clear throughout, no crackles, no rhonchi, no wheezes.] Cardiac Exam: [Normal S1 and S2, no S3 gallop, no murmur.] Abdomen: [Soft, nontender, no megaly, no rebound, no guarding, normal bowel sounds.] Extremities: [No clubbing, no edema, no cyanosis.] Neurological Exam: [No focal neurologic deficit.] Alert and oriented 3. Psychiatric: Normal mood, affect and normal mental status examination. Skin: No rashes. Musculoskeletal: No deformities and no limitation in range of motion. - Labs CBC & Chem 7: 10/21/20 04:18 10/21/20 04:18 Labs: Abnormal Lab Results - Last 24 Hours (Table) 10/21/20 Range/Units 12:11 POC Glucose (mg/dL) 105 H (75-99) mg/dL Assessment and Plan Assessment: Impression: Acute covid 19 infection without any pulmonary symptoms or findings. And without hypoxia. Possible TIA, workup is being performed by neurology on the case. Possible functional disorder with recurrent neurological symptoms, extensive workup has been done and none of it is diagnostic. Suspect hypothyroidism with elevated TSH and low T4. Patient would benefit from small Synthroid dose. Recommendation: Continue the Covid 19 cocktail. Patient does not qualify for any treatment except the vitamins, would not recommend REM no Decadron is needed, and definitely no toci and no convalescent Continue Lovenox Cleared from our perspective for discharge if cleared by neurology. Time with Patient: Less than 30
[2020-10-22 11:44] LABS: Glucose,Whole Blood 109 mg/dL (75-99)
[2020-10-22 13:09] VITALS: BMI 32.5
--- NOTE | 2020-10-22 13:11 | P.PN ---
Subjective Progress Note Date: 10/22/20 Mentation has been clear to my exam today. Moving LE appropriately with good strength. Neurology eval pending. Objective - Vital Signs Vital signs: Vital Signs Temp 98.3 F 10/22/20 07:10 Pulse 73 10/22/20 07:10 Resp 18 10/22/20 07:10 BP 120/70 10/22/20 07:10 Pulse Ox 97 10/22/20 07:10 Intake & Output 10/21/20 10/22/20 10/22/20 18:59 06:59 18:59 Intake Total 200 240 Output Total 1400 3225 Balance -1200 -3225 240 Weight 91.626 kg Intake: Oral 200 240 Output: Urine 1400 3225 Other: Voiding Method Toilet Indwelling Catheter - Exam Gen: awake, alert HEENT: normocephalic, atraumatic, good hearing acuity, moist mucous membranes Resp: good air exchange, breathing comfortably with no accessory muscle use, clear to auscultation bilaterally without wheezes or crackles CVS: good distal perfusion x 4, regular rate and rhythm without murmurs GI: soft, NTTP, ND : no SPT, no CVAT, gonzalez catheter is present MSK: no pitting edema, no clubbing Neuro: non-focal, moving all extremities Psych: cooperative, euthymic mood - Labs CBC & Chem 7: 10/21/20 04:18 10/21/20 04:18 Labs: Abnormal Lab Results - Last 24 Hours (Table) 10/22/20 Range/Units 11:41 POC Glucose (mg/dL) 109 H (75-99) mg/dL Assessment and Plan Assessment: Alteration in mental status, resolved -Previous episode of acute alteration in mental status is highly suspected to be secondary to underlying psychiatric disorder. -CT brain without contrast was reported to reveal age-related atrophic and ch ronic small vessel ischemic changes without any acute intracranial process seen at this time. -CTA head and showing 50% estimated diameter reduction to patient's right proximal internal carotid artery with no significant diameter reduction identified in the left carotid system, otherwise negative for acute intracranial process negative for significant abnormality. -EKG normal sinus rhythm at 76 bpm with T-wave inversion in inferior leads II, III, and aVF with no ST abnormalities. No previous EKG available for comparison. -Neuro checks every 4 hours. -Neurology following, appreciate further recommendations. -Consult psychiatry, appreciate further recommendations. Covid 19 virus pneumonitis -Covid 19 PCR positive on 10/20/20 -Chest x-ray reported to be brought for bronchitis with mild interstitial venous congestion and interstitial pneumonitis and basilar infiltrates bilaterally. -Oxygenation as needed to maintain SpO2 equal to or greater than 92%. -May consider adding steroid such as Decadron if patient becomes symptomatic or hypoxic, she is currently on room air with SpO2 97%. -Vitamin C, vitamin D, zinc, and melatonin. -Pulmonology following. -Bronchodilator protocol with MDIs as needed for wheezing and/or shortness of breath. -Contact plus droplet precautions. Hypothyroidism -TSH 9.430 -Daily medication management consists of Liothyronine sodium 25 mcgs daily. Dose increased to 75 g daily at this time. -Patient to follow up outpatient with PCP/endocrinology for repeat labs and continued long-term monitoring and management of thyroid function. Seizure disorder -Continue daily medication management with Tegretol and Lamictal. -Seizure precautions, fall precautions, and aspiration precautions in place. -Carbamazepine level 6.1. Type II [id number] diabetes mellitus -Hold metformin and place patient on glycemic protocol with NovoLog sliding scale. -Heart healthy carb consistent diet. Hyperlipidemia -Continue daily medication management with atorvastatin 10 mg nightly. -Heart healthy carb consistent diet CODE STATUS: Full code DVT prophylaxis: Lovenox Discussed with: Patient and RN Anticipated discharge date: Clinical course to determine Anticipated discharge place: SNF vs inpatient mental health facility
[2020-10-22 17:15] LABS: Glucose,Whole Blood 112 mg/dL (75-99)
[2020-10-22] MEDS ORDERED: CYANOCOBALAMIN 1,000 MCG/ML 1 ML VIAL IM ONE (18:00)
--- NOTE | 2020-10-22 18:30 | P.PN ---
Subjective Progress Note Date: 10/22/20 10/22/2020: Patient is feeling much better. Offers no new complaints. [place] [facility] [place] on 10/18/2020 revealed mildly abnormal EEG. Mild diffuse excess of slow frequencies indicating the presence of nonspecific encephalopathic process or medication effect. MRI of the brain without IV contrast on 10/17/2020 revealed no acute infarct. Moderate chronic small vessel ischemic changes. MRI of the cervical spine for 10/17/2020 revealed no evidence of abnormal signal in the cord. Multilevel degenerative change with severe central canal stenosis, worse on the right and severe bilateral neural foraminal stenosis at C5 6. Moderate central canal narrowing at C4 5. 10/21/2020: Patient was seen for a follow-up. Patient is fully alert and awake oriented. Speech and language functions are normal. Mentation is completely normal today. Patient states she is feeling much better. Offers no complaints. Patient able to provide more detailed history. She states that she has history of seizure disorder since she was 4 years old. She has history of petit mal and grand mal seizures. The last seizure was 2 months ago. She only gets seizure when she is upset, depressed or working too hard outside in the sun. Patient states that she has been very stable. On 10/16/2020, she was sitting, stood up and fell to the floor. Her left leg was completely froze. She tried crawling to the bed and was able to get help from the apartment office. She was [place] [facility] [place] hospitalized for 2 days. 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 Patient believes that she underwent EEG and an MRI in the hospital. Patient states that they did not check for Covid. When she went home, she couldn't walk, needed brother helped, as she couldn't walk by herself. She was not eating, drinking. Whenever she was eating, felt like will throw up. As she became very weak, therefore was brought to the hospital. Patient states that her seizures at present are managed by her primary physician. She is not seeing any neurologist. Objective - Vital Signs Vital signs: Vital Signs Temp 97.7 F 10/22/20 13:53 Pulse 74 10/22/20 13:53 Resp 18 10/22/20 15:24 BP 129/83 10/22/20 13:53 Pulse Ox 98 10/22/20 13:53 Intake & Output 10/21/20 10/22/20 10/22/20 18:59 06:59 18:59 Intake Total 200 240 Output Total 1400 3225 Balance -1200 -3225 240 Weight 91.626 kg 91.626 kg Intake: Oral 200 240 Output: Urine 1400 3225 Other: Voiding Method Toilet Indwelling Catheter Indwelling Catheter # Voids 1 # Bowel Movements 1 - Exam On examination patient is an elderly female, very pleasant, in no acute distress. She is alert and awake. Patient knows that she is in [facility], and it is October and the year is 2020 and name of the current president. On cranial nerve examination, pupils are round and reacting, visual mccray are full, extraocular muscles are intact, face is symmetric and tongue protrudes at midline. Muscle strength is normal in the arms and legs distally and proximally. No ataxia for [id number] testing. Tone and bulk of muscles normal. - Labs CBC & Chem 7: 10/21/20 04:18 10/21/20 04:18 Labs: Abnormal Lab Results - Last 24 Hours (Table) 10/22/20 10/22/20 Range/Units 11:41 17:13 POC Glucose (mg/dL) 109 H 112 H (75-99) mg/dL Assessment and Plan Assessment: * Altered mental status, possible metabolic encephalopathy * Seizure disorder * Acute Covid 19 infection. * Vitamin B12 deficiency Plan: * [place] [facility] [place] of the brain without IV contrast was normal. Moderate chronic small vessel ischemic changes. MRI of the cervical spine showed severe central canal stenosis, worse on the right and severe bilateral neural foraminal stenosis at C5 6. Patient probably will need follow-up with spine surgeon as outpatient, regarding cervical spinal stenosis. * CTA of head and neck normal. * Patient's mentation is back to normal. Current neurological examination is nonfocal. * EEG was mildly abnormal due to slightly disorganized background with minimal slowing. This is suggestive of mild generalized cerebral dysfunction, related to encephalopathy or medication effect. No epileptiform activity was seen. * Tegretol 6.1, therapeutic. Lamictal 11.0 (2-15). Neurontin level 2.0 (2.0- 12.0). TSH is elevated 9.43. IM to address hypothyroidism. * B12 209, folate 12.7, RPR nonreactive, B6, B1 62 (40-60). We will start B12 replacement. Patient was recommended to start taking vitamin B12 2500 mg sublingually daily. * Continue same dose of Lamictal 200 mg 3 times a day and Tegretol 200 mg every 8 hours. * May resume Neurontin at a lower dose 300 mg 3 times a day. (Patient was on Neurontin 800 mg 3 times a day). * Recommend patient follow up with neurologist as outpatient for management of seizure disorder, and follow-up on cervical spinal stenosis. * Continue aspirin 81 mg and Lipitor 10 mg. * Neurologically clear for discharge.
[2020-10-22 20:04] LABS: Glucose,Whole Blood 180 mg/dL (75-99)
[2020-10-22] MEDS: ATORVASTATIN 10 MG TAB PO SCH (20:27)
[2020-10-23] MEDS: LIOTHYRONINE SODIUM 5 MCG TAB PO SCH (05:45)
[2020-10-23] MEDS: carBAMazepine 200 MG TAB PO SCH (05:46)
[2020-10-23 07:29] LABS: Glucose,Whole Blood 98 mg/dL (75-99)
[2020-10-23] MEDS: INSULIN ASPART (NovoLOG) 100 UNIT/ML VIAL SQ SCH ×2 (07:58→12:19)
[2020-10-23] MEDS: lamoTRIgine 100 MG TAB PO SCH (08:44)
[2020-10-23] MEDS: GABAPENTIN 300 MG CAP PO SCH (08:44)
[2020-10-23] MEDS: ASPIRIN 81 MG PO SCH (08:44)
[2020-10-23] MEDS: ZINC SULFATE 220 MG CAP PO SCH (08:44)
[2020-10-23] MEDS: CHOLECALCIFEROL 25 MCG (1000 IU) TABLET PO SCH (08:45)
[2020-10-23] MEDS: ASCORBIC ACID 500 MG TAB PO SCH (08:45)
[2020-10-23] MEDS: ENOXAPARIN 40 MG/0.4 ML SYRINGE SQ SCH (08:45)
[2020-10-23 10:01] VITALS: BP 123/72; PULSE 80; RESP 16; TEMP 97.8
[2020-10-23] MEDS: SODIUM CHLORIDE 0.9% 1,000 ML IV SCH (11:09)
[2020-10-23 11:34] LABS: Glucose,Whole Blood 107 mg/dL (75-99)
--- NOTE | 2020-10-23 16:38 | P.DS ---
Providers Date of admission: 10/20/20 11:36 Expected date of discharge: 10/23/20 Attending physician: Nicky Ramesh DO Consults: 10/20/20 11:14 Consult Physician Routine Consulting Provider: Marco Suarez Consult Reason/Comments: code stroke Do you want consulting provider notified?: Already Contacted 10/20/20 14:17 Consult Physician Routine Consulting Provider: Psychiatry - [facility] Psychiatry Consult Reason/Comments: concerns of neuropsych condition. Do you want consulting provider notified?: Yes 10/20/20 14:26 Consult Physician Routine Consulting Provider: Jersey Epperson Consult Reason/Comments: COVID positive Do you want consulting provider notified?: Yes Primary care physician: Stated None Hospital Course: Patient is a 65-year-old female with a past medical history including epilepsy and mental delay, CVA/TIA, hyperlipidemia, and diabetes mellitus type 2. Patient presented to [facility] emergency department via EMS for reports of alteration in mental status. Patient recently discharged from [facility] on 10/19/20 where she presented initially for alteration in mental status and had full workup completed prior to discharge on October 19 and instructed to follow-up with psychiatry, neurology, internal medicine, and vascular neurology. Patient was seen and fully evaluated in the emergency department. CT brain without contrast was reported to reveal age-related atrophic and chronic small vessel ischemic changes without any acute intracranial process seen at this time. Chest x-ray reported to be brought for bronchitis with mild interstitial venous congestion and interstitial pneumonitis and basilar infiltrates bilaterally. CTA head and showing 50% estimated diameter reduction to patient's right proximal internal carotid artery with no significant diameter reduction identified in the left carotid system. Otherwise negative for acute intracranial process negative for significant abnormality. EKG normal sinus rhythm at 76 bpm with T-wave inversion in inferior leads II, III, and aVF with no ST abnormalities. No previous EKG available for comparison. Labs: Troponin normal findings < 0.012. CBC unremarkable. Coags unremarkable. BMP revealing mild hyponatremia with sodium of 134 and hypochloremia with chloride 96, otherwise no acute abnormalities. Liver profile unremarkable. Covid 19 virus PCR was POS ITIVE. Patient admitted under our services for acute alteration in mental status and Covid 19 pneumonitis with consult to neurology, psychiatry, and pulmonology. Patient did not exhibit any symptoms of COVID, and therefore was not started on dexamethasone, remdesivir, plasma, or toci; but was started on vitamin C/D, Zn, and famotidine. Pt was seen by neurology who did a workup with EEG and MRI of the neck which demonstrated central canal stenosis but no evidence of epileptiform activity. Pt will require Spine Sx follow up for this. Psychiatry had no medication change recommendations. Pt did have gonzalez placed, but passed her TOV on discharge, so this was removed, and patient did not require Urology follow up. She did work well with PT, who advised discharge home with home care services. I spent 35 minutes preparing this discharge. Assessment: Gen: awake, alert HEENT: normocephalic, atraumatic, good hearing acuity, moist mucous membranes Resp: good air exchange, breathing comfortably with no accessory muscle use, clear to auscultation bilaterally without wheezes or crackles CVS: good distal perfusion x 4, regular rate and rhythm without murmurs GI: soft, NTTP, ND : no SPT, no CVAT, gonzalez catheter is present MSK: no pitting edema, no clubbing Neuro: non-focal, moving all extremities Psych: cooperative, euthymic mood Patient Condition at Discharge: Good Plan - Discharge Summary Discharge Rx Participant: No New Discharge Prescriptions: New Albuterol Inhaler [Ventolin Hfa Inhaler] 1 puff INHALATION RT-QID PRN #1 inhaler PRN Reason: Shortness Of Breath Or Wheezing Ascorbic Acid [Vitamin C] 1,000 mg PO DAILY #30 tab Cholecalciferol [Vitamin D3 (25 Mcg = 1000 Iu)] 100 mcg PO DAILY #30 tablet Gabapentin [Neurontin] 300 mg PO TID #90 cap Zinc Sulfate [Orazinc] 220 mg PO DAILY #30 cap Continue traZODone HCL 50 mg PO HS metFORMIN HCL [Glucophage] 500 mg PO BID lamoTRIgine [LaMICtal] 200 mg PO TID carBAMazepine [TEGretol] 200 mg PO Q8H Liothyronine Sodium 25 mcg PO DAILY Atorvastatin [Lipitor] 10 mg PO HS Aspirin EC [Ecotrin Low Dose] 81 mg PO DAILY Discontinued Gabapentin 800 mg PO TID Discharge Medication List Aspirin EC [Ecotrin Low Dose] 81 mg PO DAILY 10/20/20 [History] Atorvastatin [Lipitor] 10 mg PO HS 10/20/20 [History] Liothyronine Sodium 25 mcg PO DAILY 10/20/20 [History] carBAMazepine [TEGretol] 200 mg PO Q8H 10/20/20 [History] lamoTRIgine [LaMICtal] 200 mg PO TID 10/20/20 [History] metFORMIN HCL [Glucophage] 500 mg PO BID 10/20/20 [History] traZODone HCL 50 mg PO HS 10/20/20 [History] Albuterol Inhaler [Ventolin Hfa Inhaler] 1 puff INHALATION RT-QID PRN #1 inhaler 10/23/20 [Rx] Ascorbic Acid [Vitamin C] 1,000 mg PO DAILY #30 tab 10/23/20 [Rx] Cholecalciferol [Vitamin D3 (25 Mcg = 1000 Iu)] 100 mcg PO DAILY #30 tablet 10/23/20 [Rx] Gabapentin [Neurontin] 300 mg PO TID #90 cap 10/23/20 [Rx] Zinc Sulfate [Orazinc] 220 mg PO DAILY #30 cap 10/23/20 [Rx] Follow up Appointment(s)/Referral(s): Karen Rivera DO [Doctor of Osteopathic Medicine] - 10/31/20 9:00 am [facility] [NON-STAFF] - As Needed (Supplier of walker) None,Stated [Primary Care Provider] - 1-2 days Patient Instructions/Handouts: Coronavirus Disease 2019 (COVID-19) Discharge Disposition: HOME WITH HOME HEALTH SERVICES
== END 2020-10-23 13:40 | disposition home health service (06) | DRG 177 ==
LOC: EC 09:22 → 1SOBS 11:36 → 6NMEDSUR 10-21 06:37
PROVIDERS: ADMIT Internal Medicine; ATTEND Internal Medicine
DX: U07.1 COVID-19 (principal); J12.82 Pneumonia due to coronavirus disease 2019; G93.41 Metabolic encephalopathy; R47.01 Aphasia; E87.1 Hypo-osmolality and hyponatremia; Z86.73 Personal history of transient ischemic attack (TIA), and cerebral infarction without residual deficits; R29.706 NIHSS score 6; E78.5 Hyperlipidemia, unspecified; J40 Bronchitis, not specified as acute or chronic; E87.8 Other disorders of electrolyte and fluid balance, not elsewhere classified; E11.9 Type 2 diabetes mellitus without complications; Z79.84 Long term (current) use of oral hypoglycemic drugs; Z79.82 Long term (current) use of aspirin; Z87.820 Personal history of traumatic brain injury; E03.9 Hypothyroidism, unspecified; M48.02 Spinal stenosis, cervical region; E53.8 Deficiency of other specified B group vitamins; G40.909 Epilepsy, unspecified, not intractable, without status epilepticus
CPT/HCPCS: 36415; 70450; 70496; 70498; 71046; 80048; 80053; 80061; 80156; 80171; 80175; 82607; 82728; 82746; 83615; 83735; 84207; 84425; 84439; 84443; 84484; 85025; 85379; 85610; 85730; 86140; 86780; 87635; 93005; 95816; 96360; 99285